=== PATIENT | male | born 1940 | race Caucasian/White ===

== ENCOUNTER 2022-11-12 12:57 | Emergency (ER) | payer MEDICARE, OTHER ==
[~2022-11-12] VITALS: Ht 182.9 cm; Wt 81.7 kg
[2022-11-12] MEDS ORDERED: METOPROLOL SUCC25 MG PO (13:32)
[2022-11-12] MEDS ORDERED: OMEPRAZOLE20 MG PO (13:33)
[2022-11-12] MEDS ORDERED: ATORVASTATIN CA40 MG PO (13:33)
[2022-11-12] MEDS ORDERED: WARFARIN SODIUM5 MG PO (13:33)
[2022-11-12] MEDS ORDERED: FINASTERIDE5 MG PO (13:34)
[2022-11-12] MEDS ORDERED: PREDNISONE20 MG PO (13:53)
[2022-11-12] MEDS ORDERED: LIDODERM1 EACH TOP (13:53)
== END 2022-11-12 14:19 | disposition home or self-care (01) ==
LOC: ED 12:57
DX: M54.50 Low back pain, unspecified (principal); Z79.899 Other long term (current) drug therapy; Z79.01 Long term (current) use of anticoagulants
CPT/HCPCS: 99283; A9270; J8540

== ENCOUNTER 2024-06-06 05:52 | Day surgery (SDC) | payer MEDICARE, OTHER ==
[~2024-06-06] VITALS: Ht 182.9 cm; Wt 81.8 kg
[~2024-06-06 05:52] MED LIST: LACTATED RINGER'S 1,000 ML IV SCH
--- NOTE | 2024-06-06 06:28 | NUR ---
LE 0550: PT ARRIVES TO AMBUALTORY ACCOMPANIED BY DAUGHTER. HE IS EDUCATED ON HOW TO WIPE DOWN AND OPEN HIS CURTAIN WHEN READY. LE 0615: PT AND DAUGHTER ARE EDUCATED ON DC CRITERIA AND ROUGHLY HOW TODAY WILL GO. THEY BOTH VERBALIZE UNDERSTANDING. LE 0628: PT IS ORIENTED TO CALL LIGHT.
[2024-06-06] MEDS ORDERED: HEParin SOD (PORCINE) 5,000 UNIT/0.5 ML SYR SUB-Q SCH ×2 (07:00)
[2024-06-06] MEDS ORDERED: LIDOCAINE HCL 1% 5 ML SDV INJ ONE (07:00)
[2024-06-06] MEDS ORDERED: CEFAZOLIN SODIUM 2 GM/20 ML SYR IV SCH ×2 (07:00)
[2024-06-06] MEDS ORDERED: IBLOOD GLUCOSE TEST STRIP 1 EA TEST VI PRN ×2 (07:00→07:45)
[2024-06-06] MEDS ORDERED: ondansetron HCL 4 MG/2 ML VIAL ONE (07:12)
[2024-06-06] MEDS ORDERED: propofoL 200 MG/20 ML VIAL ONE ×2 (07:12→08:12)
[2024-06-06] MEDS ORDERED: LIDOCAINE HCL 2% 5 ML SDV ONE (07:12)
[2024-06-06] MEDS ORDERED: DEXAMETHASONE SOD PHOS 4 MG/ML VIAL ONE (07:12)
[2024-06-06] MEDS ORDERED: LIDOCAINE HCL 1% 30 ML SDV ONE (07:13)
[2024-06-06] MEDS ORDERED: dexmedeTOMIDine HCl 200 MCG/2 ML VIAL ONE (07:14)
[2024-06-06 07:16] LABS: INR 1.28 (0.80-1.30); PROTIME 15.2 Sec (11.2-14.2)
[2024-06-06] MEDS ORDERED: ACETAMINOPHEN 1,000 MG/100 ML VIAL ONE (07:17)
--- NOTE | 2024-06-06 07:30 | NUR ---
VISITED DURING SPIRITUAL CARE ROUNDS. PT SUPPORTED BY FAMILY MEMBER IN ROOM; STRONG RELATIONAL RESOURCES IN EVIDENCE. [facility]THOPAEDIC GENERAL PROVIDED SUPPORTIVE PRESENCE, HOSPITALITY, PRAYER.
[2024-06-06] MEDS ORDERED: NALOXONE HCL 0.4 MG SYR IV PRN ×2 (07:45→09:15)
[2024-06-06] MEDS ORDERED: ondansetron HCL 4 MG/2 ML VIAL IV PRN (07:45)
[2024-06-06] MEDS ORDERED: fentaNYL citrate 50 MCG/ML SDV IV PRN (07:45)
[2024-06-06] MEDS ORDERED: ePHEDrine sulfate 50 MG/ML AMP ONE (07:59)
[2024-06-06] MEDS ORDERED: fentaNYL citrate 100 MCG/2 ML VIAL ONE (08:12)
[2024-06-06] MEDS ORDERED: HYDROCODONE/ACETA 5/325 TAB PO PRN (09:15)
[2024-06-06] MEDS ORDERED: ACETAMINOPHEN 500 MG TAB PO PRN (09:15)
[2024-06-06] MEDS ORDERED: LACTATED RINGER'S 1,000 ML IV SCH (09:15)
[2024-06-06] MEDS ORDERED: IBUPROFEN 600 MG TAB PO PRN (09:15)
--- NOTE | 2024-06-06 09:20 | NUR ---
06/06/24 0920 Michelle Lundy 0905- PT ARRIVES TO PACU, SEMI POND POSITION. OPA IN PLACE, BREATHING EVEN AND NON LABORED, O2 AT 6L PER MASK. LR INFUSING TO RW IV. PT NON REACTIVE TO ALL STIMULUS. ABD SOFT, NON DISTENDED. DRESSING IN PLACE TO RIGHT GROIN, CDI. ALL MONITORS APPLIED. HEARING AID REMAINS IN PLACE TO LEFT EAR. 0916- PT REACTIVE TO TACTILE STIMULUS, FOLLOWS COMMANDS TO REMOVE OPA. KEEPS EYES CLOSED BUT LIFTS HEAD OFF BED AND UPPER EXTREMITIES. NO SIGNS OF DISTRESS. O2 REMAINS IN PLACE AT THIS TIME.
[2024-06-06 10:40] VITALS: BP 126/74
--- NOTE | 2024-06-06 10:42 | NUR ---
LE 1040: PT REPORTS TOLERABLE PAIN AT 4/10. HE IS TOLERATING APPLE SAUCE, COFFEE, AND WATER. HE DENIES THE NEED TO VOID AT THIS TIME. FAMILY IS AT THE BEDSIDE. CALL LIGHT WITHIN REACH. DC CRITERIA IS REVIEWED. HE WOULD LIKE TO TRY AND GET UP TO VOID.
--- NOTE | 2024-06-06 11:33 | NUR ---
LE 1045: PT IS ASSISTED UP OOB WITH STAND BY ASSIST TO THE BATHROOM. LE 1050: PT IS ABLE TO VOID 200MLS OF DARK YELLOW URINE. HE AMBULATES BACK TO HIS ROOM WITH ISSUES. HE INDICATES THAT HE WOULD LIKE TO GO HOME. HE IS EDUCATED ON HOW TO BEST DRESS HIMSELF AND TO OPEN HIS CURTAIN WHEN READY. LE 1058: PT AND SON ARE GIVEN VERBAL AND WRITTEN DC INSTRUCTIONS. THEY VERBALIZE UNDERSTANDING. NO QUESTIONS ARE ASKED AT THIS TIME. LE 1100: PT IS TAKEN TO PERSONAL VEHICLE VIA WC, HE TRANSFERS HIMSELF WITHOUT ISSUES.
--- NOTE | 2024-06-10 13:20 | OR ---
[facility] [address] [place], [place] [address] Signed DATE OF OPERATION: 06/06/2024 SURGEON: Triston Edmond MD PREOPERATIVE DIAGNOSIS: Right inguinal hernia. POSTOPERATIVE DIAGNOSIS: Right indirect inguinal hernia with attenuation of floor. PROCEDURE: Repair of right inguinal hernia including ligation and excision of indirect sac and implantation of Prolene mesh (ProGrip) underlay technique. ANESTHESIA: General, LMA; Roseline Mandujano CRNA and local 0.25% Marcaine with epinephrine. INDICATIONS: This 83-year-old white man, who is surprisingly healthy for his advanced age. He has noted a right inguinal hernia, which is reducible. He presented to the emergency room several weeks ago with this and was found to have a non-incarcerated hernia. He is chronically anticoagulated with Coumadin for paroxysmal atrial fibrillation. He is now to undergo right inguinal hernia repair. He understands the risk of bleeding, infection, recurrent hernia, and other unforeseen complications. Understanding this, he wished to proceed. FINDINGS: An indirect hernia sac was noted. It was moderate in size and had no sign of sliding component. It was excised after ligation at the neck of the hernia sac. The floor was attenuated, though not frankly herniated. Implantation of Prolene mesh in an underlay technique with appropriate Prolene type mesh was undertaken. Care was taken to avoid excessive tension around the cord and ilioinguinal nerve branch was identified and preserved as well. DESCRIPTION OF PROCEDURE: The patient was brought to the operating room, given a general LMA type anesthetic. Preoperative antibiotic Ancef had been given. He had been off his Coumadin for at least four days. The lower abdomen was clipped and prepared with chlorhexidine solution and draped sterilely. An incision was made cephalad to the pubic tubercle. Dissection carried through the subcutaneous tissue with electrocautery. The external oblique was Electronically Signed By: TRISTON EDMOND MD 06/10/24 1320 PATIENT NAME: VLAD ONEIL OPERATIVE REPORT DATE OF : 36 REPORT #: [id number] PHYSICIAN: TRISTON EDMOND MD PCP: FRED DALLAS MD REPORT IS CONFIDENTIAL AND NOT TO BE RELEASED WITHOUT AUTHORIZATION [facility] [address] [place], [place] [address] Signed incised along its fibers revealing the underlying cord. An ilioinguinal nerve branch was dissected free from the cremasteric muscle fibers of the cord and reflected medially around the external oblique. The cord was then carefully mobilized from the floor of the canal using blunt and electrocautery dissection and encircled with a [place] drain. The floor itself was somewhat attenuated. The bulky cord most likely did have an indirect sac and on that basis, the cremasteric muscle fibers were incised transversely revealing the indirect hernia sac in the medial aspect of the cord. The cord was freed from the hernia sac more fully and isolated completely. It was elevated and incised and inspected internally showing no sign of sliding component or incarcerated viscus. A 2-0 silk suture was used to ligate the neck of the sac. The hernia sac was amputated and passed for pathology. An Allis clamp was applied to the tendon of the transversus abdominis and the attenuated fibers of the floor of the canal were incised with electrocautery and using blunt dissection, the properitoneal fat was . The segment of ProGrip Prolene mesh was secured in an underlay technique with interrupted 2-0 Prolene sutures. A defect was cut in the graft to accommodate the cord structures. Care was taken to encircle the cord without excessive tension laterally. Good repair was quite apparent. A 10 mL of 0.25% Marcaine with epinephrine was injected locally. The ilioinguinal nerve was replaced into the canal as was the cord and the external oblique reapproximated with a running 2-0 Vicryl suture. Wally layer was reapproximated with interrupted 2-0 Vicryl and skin closed with running subcuticular 3-0 Vicryl. Steri-Strips were applied as was an Acticoat dressing. The patient was extubated and transferred to the recovery room in good condition, having suffered no complication. Sponge, needle, and instrument counts reported as correct x3. Triston Edmond MD /MODL /[id number] cc: Dr. Dallas Copies: ~ Electronically Signed By: TRISTON EDMOND MD 06/10/24 1320 PATIENT NAME: VLAD ONEIL OPERATIVE REPORT DATE OF : 36 REPORT #: [id number] PHYSICIAN: TRISTON EDMOND MD PCP: FRED DALLAS MD REPORT IS CONFIDENTIAL AND NOT TO BE RELEASED WITHOUT AUTHORIZATION
--- NOTE | 2024-06-11 11:24 | PATH ---
[facility] [address] [place], [place] [address] Signed SPECIMEN(S): A RIGHT INGUINAL HERNIA SAC SPECIMEN SOURCE: A. RIGHT INGUINAL HERNIA SAC CLINICAL HISTORY: Right inguinal hernia FINAL PATHOLOGIC DIAGNOSIS: Hernia sac, right inguinal, herniorrhaphy: - Mesothelial lined fibroconnective tissue; clinically hernia sac BRP MICROSCOPIC EXAMINATION: Histologic sections of all submitted blocks are examined by light microscopy. These findings, together with the gross examination, support the pathologic diagnosis. GROSS DESCRIPTION: The specimen, labeled and designated "Oles, D, hernia sac," is received in formalin and consists of portion of graypurple membranous tissue measuring 6.0 x 2.5 x 0.3 cm. Specimen sectioned to reveal smooth inner lining. No gross identifiable firm areas discrete lesions present. Area Plant Manager sections submitted in a single cassette. XIOMARA (under the direct supervision of a pathologist) The Gross Description was prepared using a voice recognition system. The report was reviewed for accuracy; however, sound-alike word errors, addition and/or deletions may occur. If there is any question about this report, please contact Client Services. ADDITIONAL NOTES: Immunohistochemical and/or in situ hybridization studies if performed in this case included appropriate positive controls that reacted as expected. This test was developed and its performance characteristics determined by [facility]. It has not been cleared or approved by the U.S. Food and Drug Administration. The FDA has determined that such clearance or approval is not necessary. This test is used for clinical purposes. It should not be regarded as investigational or for research. [facility] is certified under the Clinical Laboratory Improvement Amendments of 1988 (CLIA) as qualified to perform high complexity clinical PATIENT NAME: VLAD ONEIL PATHOLOGY DATE OF : 36 REPORT #: [id number] PHYSICIAN: IRINA HUNT PCP: FRED MARCANO MD REPORT IS CONFIDENTIAL AND NOT TO BE RELEASED WITHOUT AUTHORIZATION [facility] [address] [facility] [place] [address] Signed laboratory testing. PERFORMING LABORATORY: Technical component was performed by [facility], [address] [place] [id number] (CLIA# [id number]). Professional interpretation was performed by [facility], [address] [place] [id number] (CLIA#: [id number]). Diagnostician: Go Robbins MD Pathologist Electronically Signed 06/11/2024 Copies: ~ PATIENT NAME: VLAD ONEIL PATHOLOGY DATE OF : 36 REPORT #: [id number] PHYSICIAN: IRINA HUNT PCP: FRED MARCANO MD REPORT IS CONFIDENTIAL AND NOT TO BE RELEASED WITHOUT AUTHORIZATION
== END 2024-06-06 11:00 | disposition home or self-care (01) ==
LOC: DS 05:52
PROVIDERS: Nurse Anesthetist, Certified Registered; ATTEND Surgery
PROC: 0YU50JZ Supplement Right Inguinal Region with Synthetic Substitute, Open Approach (ICD-10-PCS; principal; 2024-06-06)
DX: K40.90 Unilateral inguinal hernia, without obstruction or gangrene, not specified as recurrent (principal); I10 Essential (primary) hypertension; I48.0 Paroxysmal atrial fibrillation; I25.810 Atherosclerosis of coronary artery bypass graft(s) without angina pectoris; Z79.01 Long term (current) use of anticoagulants; Z79.899 Other long term (current) drug therapy; Z95.1 Presence of aortocoronary bypass graft
CPT/HCPCS: 00830; 36415; 85610; 88302; C1781; J0131; J0690; J1100; J1644; J2001; J2405; J2704; J3010; J7121

== ENCOUNTER 2025-04-30 15:44 | Emergency (ER) | payer MEDICARE, OTHER ==
[~2025-04-30] VITALS: Ht 182.9 cm; Wt 81.5 kg
[~2025-04-30 15:44] MED LIST changes: +ACETAMINOPHEN500 MG PO; +AMLODIPINE BESYL5 MG PO; +ATORVASTATIN CA40 MG PO; +CLOBETASOL PROP15 GM TOP; +FINASTERIDE5 MG PO; +HYDROCODON-ACE1 EA10 PO; +IBUPROFEN600 MG PO; -LACTATED RINGER'S 1,000 ML IV SCH; +LIDODERM1 EACH TOP; +METOPROLOL SUCC25 MG PO; +NYSTATIN15 GM TOP; +OMEPRAZOLE20 MG PO; +PREDNISONE20 MG PO; +WARFARIN SODIUM5 MG PO
[2025-04-30] MEDS ORDERED: SPIRONOLACTONE25 MG PO (15:59)
[2025-04-30 17:18] VITALS: BP 140/73
--- NOTE | 2025-05-01 21:44 | EKG ---
[facility] [address] [facility] [place] [address] Signed Atrial fibrillation Right bundle branch block Cannot rule out Inferior infarct , age undetermined Abnormal ECG When compared with ECG of 29-MAY-2024 08:33, Minimal criteria for Inferior infarct are now present Confirmed by Mansi Siu MD () on 05/01/2025 9:44:17 PM Electronically Signed By: MANSI SIU MD 05/01/25 2144 PATIENT NAME: VLAD ONEIL GEOVANY Electrocardiogram DATE OF : 36 PHYSICIAN: MANSI SIU MD REPORT #: [id number] REPORT IS CONFIDENTIAL AND NOT TO BE RELEASED WITHOUT AUTHORIZATION
== END 2025-04-30 17:19 | disposition home or self-care (01) ==
LOC: ED 15:44
DX: R20.0 Anesthesia of skin (principal); I48.91 Unspecified atrial fibrillation
CPT/HCPCS: 99284